=== PATIENT | male | born 1975 | race Caucasian/White ===

== ENCOUNTER → 2020-11-29 12:45 | Outpatient (CLI) | payer BC, SELFPAY | PROVIDERS: PCP Family Medicine; Visit Provider Family Medicine | DX: G47.33 Obstructive sleep apnea (adult) (pediatric) (principal); R06.83 Snoring | CPT/HCPCS: G0399 ==

== ENCOUNTER 2024-06-17 13:24 | Outpatient (CLI) | payer BC, SELFPAY ==
--- NOTE | 2024-06-17 13:40 | CA_ITS ---
FINAL REPORT TECHNIQUE: Ultrasound images of the deep venous system were obtained from the left groin to the calf veins. CLINICAL HISTORY: PAIN LEFT CALF X SEVERAL DAYS,NKI COMPARISON: Mild FINDINGS: Thrombus is seen in the left gastrocnemius vein. The remainder of the deep veins are normal. IMPRESSION: Left gastrocnemius thrombus. Reviewed, Interpreted and Dictated by Javier Blue MD Transcribed by Jane Han Authenticated and [facility]
== END 2024-06-17 23:59 | disposition home or self-care (01) ==
PROVIDERS: PCP Family Medicine; Visit Provider Family Medicine
DX: M79.662 Pain in left lower leg (principal); R60.9 Edema, unspecified
CPT/HCPCS: 93971

== ENCOUNTER 2024-09-11 09:39 | Outpatient (CLI) | payer BC, SELFPAY ==
--- NOTE | 2024-09-11 09:42 | US_ITS ---
FINAL REPORT TECHNIQUE: Ultrasound images of the kidneys were obtained. CLINICAL HISTORY: CYST OF KIDNEY COMPARISON: None FINDINGS: RENAL ULTRASOUND Limited images of the liver parenchyma demonstrate normal echogenicity. The right kidney measures 12.3 cm in length. There is no hydronephrosis. There is a small 1.7 cm cyst. No solid mass or stone is evident. There is normal cortical echogenicity and thickness. The left kidney measures 11.3 cm in length. There is no hydronephrosis, mass, or stone. There is normal cortical echogenicity and thickness. IMPRESSION: Small right renal cyst, otherwise unremarkable ultrasound of the kidneys. Reviewed, Interpreted and Dictated by Kriss Jerome MD Transcribed by Jimena Benitez Authenticated and [facility]
== END 2024-09-11 23:59 | disposition home or self-care (01) ==
PROVIDERS: PCP Family Medicine; Visit Provider Urology
DX: N28.1 Cyst of kidney, acquired (principal)
CPT/HCPCS: 76770